=== PATIENT | female | born 1950 | race African-American/Black ===

== ENCOUNTER 2016-08-27 05:19 | Inpatient (IN) ==
[2016-08-24 13:50] LABS: Basophils % 0.4 % (0.0-0.8); Eosinophils # 0.1 10*3/uL (0.0-0.87); Hematocrit 44.1 VOL% (35.7-47.0); Hemoglobin 14.4 GM/DL (12.0-16.0); Immature Granulocytes % 0.3 %; Immature Granulocytes Absolute 0.03 #; Lymphocytes # 4.3 10*3/uL (1.4-4.0); Lymphocytes % 39.3 % (21.3-54.2); Mean Corpuscular HGB Conc 32.7 GM/DL (32-36); Mean Corpuscular Hemoglobin 30 PG (27-34); Mean Corpuscular Volume 92.8 FL (87-102); Mean Platelet Volume 8.7 FL (9.6-12.0); Monocytes # 0.7 10*3/uL (0.11-0.8); Monocytes % 5.9 % (1.7-12.7); Neutrophils # 5.9 10*3/uL (1.4-7.4); Neutrophils % 53.1 % (38.7-73.9); Platelet Count 313 10*3/uL (130-400); Red Blood Count 4.75 10*6/uL (3.8-5.5); Red Cell Distribution Width 15.5 % (9.3-17.3)
--- NOTE | 2016-08-24 13:52 | EKG Report ---
Stationary ECG Study [facility] Test Date: 08/24/2016 1:50:59 PM Pat Name: ANDRE VIEYRA Department: Room: Gender: F Waste Disposal Attendant: KATHIA TA : 1950 Requested by: Darnell Ta Order Number: [id number] Reading MD: HORTENCIA CARMICHAEL Intervals O'Brien Rate: 82 P: 65 AL: 162 QRS: 25 QRSD: 91 T: 49 QT: 393 QTc: 432 Interpretive Statements SINUS RHYTHM Electronically Signed On 08-24-16 16:23:22 ARTIST WOODBLOCK by HORTENCIA CARMICHAEL [email or web address]
[2016-08-24 14:32] LABS: Calcium 9.7 MG/DL (8.5-10.1); Osmolality,Calculated 288.6 MOS/KG (273-304); Potassium 4.1 MMOL/L (3.5-5.1)
--- NOTE | 2016-08-24 16:47 | XRay Report ---
XR chest 2V Indication: Preop respiratory evaluation. Chest 2 views: Comparison 07/06/16. Heart size remains upper limits normal with continued thoracic aortic tortuosity. No discrete infiltrates. Oral spaces appear clear. Impression: No acute cardio pulmonary disease. PROCEDURE INTERPRETED AT [facility] DEPARTMENT OF RADIOLOGY Final Report Signed by: Frederick Shafer M.D.
[2016-08-27] MEDS ORDERED: cefOXitin 1,000 MG in SODIUM CHLORIDE 0.9% 100 ML IV ONE (06:00)
[2016-08-27] MEDS ORDERED: SODIUM CHLORIDE 0.9% 100 ML IV ONE (06:00)
[2016-08-27] MEDS ORDERED: FAMOTIDINE 20 MG TABLET PO ONE (06:14)
[2016-08-27] MEDS ORDERED: DIAZEPAM 5 MG TABLET PO ONE (06:14)
[2016-08-27] MEDS: LACTATED RINGERS 1,000 ML IV SCH ×3 (06:25→10:01)
[2016-08-27] MEDS ORDERED: LIDOCAINE 2% TOP JELLY 20 ML VIAL INTRAURETH ONE (06:29)
--- NOTE | 2016-08-27 07:02 | History and Physical Update ---
History and Physical Update - History and Physical H&P was reviewed, the patient examined and there: are no changes in the patients condition since last H&P was completed.
[2016-08-27] MEDS ORDERED: ONDANSETRON 4 MG/2 ML VIAL ONE ×2 (07:12→12:05)
[2016-08-27] MEDS ORDERED: PROPOFOL 200 MG/20 ML VIAL IV ONE (07:12)
[2016-08-27] MEDS ORDERED: ROCURONIUM 100 MG/10 ML VIAL IV ONE (07:12)
[2016-08-27] MEDS ORDERED: LIDOCAINE 2% 5 ML VIAL ONE (07:12)
[2016-08-27] MEDS ORDERED: GLYCOPYRROLATE 0.4 MG/2 ML VIAL ONE (07:12)
[2016-08-27] MEDS ORDERED: NEOSTIGMINE 10 MG/10 ML VIAL ONE (07:12)
[2016-08-27] MEDS ORDERED: ONDANSETRON 4 MG/2 ML VIAL IV PRN ×2 (07:49→11:53)
[2016-08-27] MEDS ORDERED: METHYLENE BLUE 10 ML VIAL IV ONE (09:17)
--- NOTE | 2016-08-27 10:16 | Operative Note ---
Date of procedure: 08/27/16 Pre-op diagnosis: colovesical fistula Post-op diagnosis: same Procedure: 65-year-old black female with colovesical fistula brought in for partial colectomy and excision of the bladder fistula. Recommended placing a left ureteral stent due to the fistula being close to the ureter and ureteral orifice. Patient brought to the operative suite and given a general endotracheal anesthetic and prepared and draped in usual sterile manner. She's placed in lithotomy position. 20 3 [place] cystourethroscope was passed with video camera. Urethra is normal. The bladder shows the fistula just medial and slightly superior to the left ureteral orifice. A guidewire is passed and a 6 [place] 24 centimeters stent is placed. 18 [place] Sosa was then placed in left gravity drainage. The referred to Dr. Rodriguez dictation for excision of the colon. Implants: 6 [place] 24 centimeters stent Anesthesia: SILVA Surgeon / Physician: Fernando Ledesma Estimated blood loss: none Specimens: none sent Condition: stable Disposition: no change Results - Labs CBC & BMP: 08/24/16 11:34 08/24/16 11:34 Discharge Plan - Discharge Medications No Action Mometasone 50 Mcg Nasal [place] [Nasonex Nasal Faber] 2 spray BOTH NARES BID Clorazepate Dipotassium 3.75 mg PO BID amLODIPine [Norvasc] 5 mg PO DAILY Aspirin [Ecotrin] 81 mg PO DAILY Omeprazole 20 mg PO DAILY Atorvastatin [Lipitor] 40 mg PO DAILY Aloe Vera 400 mg PO DAILY - Follow Up or Referral - Forms/Instructions
--- NOTE | 2016-08-27 10:20 | Operative Note ---
Date of procedure: 08/27/16 Pre-op diagnosis: colovesical fistula Post-op diagnosis: same Procedure: 65-year-old black female with a colovesical fistula. She is brought in for excision by partial colectomy and removal of the fistula from the bladder with a ureteral stent. Previously I cystoscoped him place a stent. Dr. Rodriguez the third has done a partial colectomy. Previous Sosa catheter was removed and the 20 [place]utanese Sosa is inserted. The bladder is filled with about the 200 5300 cc of saline. Superior cystotomy was created with cautery. The bladder was drained. The cystotomy was extended. Retractors were placed in the bladder. The fistula was identified and it is close to the ureter and the stents in good position. The fistula was then encircled with cautery. Metzenbaums were used to dissect the fascial out slightly. 3 of traction sutures placed through the fistula and the fissures pulled up. Using Metzenbaum the fistula was excised. This is very dense fibrotic tissue but after I felt I had enough fistula out it was then amputated. Cautery was used to provide hemostasis. The bladder was then closed with 2 layers with a 2-0 Vicryl on the detrusor and a 4-0 running Vicryl on the mucosa. The bladder is irrigated. The ureter is uninvolved in this and the ureteral orifices intact. The bladder is then closed with a running 4-0 Vicryl on the mucosa and a 2 oh Vicryl on the detrusor. It is really extra peritonealized with a 2-0 Vicryl on the peritoneum. Prior to closure the bladder was irrigated and drained. Sosa was left to gravity drainage. The reader is then referred to Dr. Rodriguez dictation for further procedures. All sponge, needle and instrument counts correct to on the bladder repair with excision of fistula. Anesthesia: GETA Surgeon / Physician: Fernando Ledesma Estimated blood loss: other (10cc) Specimens: other (bladder fistula) Condition: stable Disposition: no change Results - Labs CBC & BMP: 08/24/16 11:34 08/24/16 11:34 Discharge Plan - Discharge Medications No Action Mometasone 50 Mcg Nasal [place] [Nasonex Nasal [place]] 2 spray BOTH NARES BID Clorazepate Dipotassium 3.75 mg PO BID amLODIPine [Norvasc] 5 mg PO DAILY Aspirin [Ecotrin] 81 mg PO DAILY Omeprazole 20 mg PO DAILY Atorvastatin [Lipitor] 40 mg PO DAILY Aloe Vera 400 mg PO DAILY - Follow Up or Referral - Forms/Instructions
[2016-08-27] MEDS ORDERED: TISSUE ADHESIVE 1 EACH APPLICATOR TOP ONE (11:17)
--- NOTE | 2016-08-27 11:24 | Operative Note ---
Date of procedure: 08/27/16 Procedure: During the course a low anterior resection Dr. Rodriguez as requested my assistance with completing the anastomosis. As I joined the case that he had performed a resection of the sigmoid colon and proximal rectum and was prepared for an end-to-end anastomosis. I advanced the EEA instrument and spike through the rectum place and will within the proximal colon and then this was fired appropriately. At completion I performed proctoscopy and noted the anastomosis but there was a good bit of a leak as we examine the anastomosis we found that the proximal portion had not completely closed with the EEA device. Dr. Rodriguez and I reevaluated the situation felt that resection and regular doing the anastomosis was appropriate and this was carried out by refiring a contoured stapling estimate across the rectum just distal to the previous anastomosis bringing that anastomosis re-performing the pursestring and placing amble the second anastomosis with a 28 mm EEA was carried out then performed proctoscopy again noting the anastomosis and no sign of air leak and a well intact anastomosis with no active bleeding. This point I left case and Dr. Rodriguez completed the majority of this procedure is discussed by separately and Dr. Rodriguez's operative note Surgeon / Physician: Jaron Pacheco Results - Labs CBC & BMP: 08/24/16 11:34 08/24/16 11:34 Discharge Plan - Discharge Medications No Action Mometasone 50 Mcg Nasal [place] [Nasonex Nasal [place]] 2 spray BOTH NARES BID Clorazepate Dipotassium 3.75 mg PO BID amLODIPine [Norvasc] 5 mg PO DAILY Aspirin [Ecotrin] 81 mg PO DAILY Omeprazole 20 mg PO DAILY Atorvastatin [Lipitor] 40 mg PO DAILY Aloe Vera 400 mg PO DAILY - Follow Up or Referral - Forms/Instructions
--- NOTE | 2016-08-27 11:52 | Operative Note ---
Date of procedure: 08/27/16 Pre-op diagnosis: colovesical fistula Post-op diagnosis: same Procedure: Sigmoid colectomy with stapled EEA anastomosis #2 complete mobilization of splenic flexure #3 extensive lysis of pelvic adhesions to gain access to the bowel. Findings and technique: After informed consent was obtained the patient was brought the operating room and placed in supine position. After successful induction with general anesthesia cystoscopy was carried out by Dr. Ledesma and a left ureteral stent placed by him. Please see his separate operative dictation. Following this the abdomen was prepped and draped in usual sterile fashion and opened through the lower midline incision. The pelvis was full of postoperative adhesions from previous surgery and this required extensive dissection to free up small bowel to get it out of the pelvis so we could expose the colon and the bladder. 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 No evidence of malignancy was noted. I then mobilized the sigmoid colon which was folded back on itself a couple of times and stuck to the posterior aspect of the bladder. Prior to trying to free up the sigmoid I dissected laterally and identified the ureter and kept my dissection medial to the ureter. I tediously mobilized it free from the bladder and dissected down to the proximal rectum. I mobilized the descending colon and splenic flexure as well so that I could resect most of the sigmoid colon which had diverticular disease. This was resected dividing the mesocolon between clamps and ties and transecting the rectosigmoid with a curved stapling device. The specimen was removed and inspected by pathology and no malignancy noted. The point of the fistula was noted as well. Following this the bladder repair was carried out by Dr. Ledesma. Please see his separate operative dictation. Following Dr. Ledesma repair of the anastomosis was performed with a 28 mm EEA stapling device and the first firing the stapler had a leak posteriorly through what I felt was probably a weak area possibly where there had been a diverticulum. I resected the staple line and repeated it with the assistance of Dr. Whaely and we got a good clean staple line under no tension which appeared to be well-perfused. This was leak tested under water and also proctoscope under water and no leakage of air noted. This suture line was reinforced with several interrupted silk sutures and coated with Tisseel tissue sealant. I then placed some pericolic fat and omentum over the anterior staple line and isolated away from the bladder area a 10 mm MADDI drain was placed in the pelvis and brought out through separate stab incision laterally. Midline fascia was closed running #1 PDS suture and the skin incision closed with skin clips. She appeared to tolerate the procedure well. This was a much more difficult procedure than usual because of her obese body habitus with truncal obesity concentrated in her lower abdomen and also her extensive previous adhesions. These factors add greatly to the difficulty and complexity of the case essentially doubling usual expected operative time. She appeared to tolerate the procedure well however and had no apparent complications. Anesthesia: ARPANA Surgeon / Physician: Darnell Rodriguez III. Estimated blood loss: other (100ml) Specimens: other (sigmoid colectomy) Condition: stable Disposition: PACU Results - Labs CBC & BMP: 08/24/16 11:34 08/24/16 11:34 Discharge Plan - Discharge Medications No Action Mometasone 50 Mcg Nasal [place] [Nasonex Nasal [place]] 2 spray BOTH NARES BID Clorazepate Dipotassium 3.75 mg PO BID amLODIPine [Norvasc] 5 mg PO DAILY Aspirin [Ecotrin] 81 mg PO DAILY Omeprazole 20 mg PO DAILY Atorvastatin [Lipitor] 40 mg PO DAILY Aloe Vera 400 mg PO DAILY - Follow Up or Referral - Forms/Instructions
[2016-08-27] MEDS ORDERED: LACTATED RINGERS 2,000 ML IV ONE (11:59)
[2016-08-27] MEDS ORDERED: MIDAZOLAM 2 MG/2 ML VIAL ONE (11:59)
[2016-08-27] MEDS ORDERED: SEVOFLURANE 1 UNIT/15 MINUTE INH ONE (11:59)
[2016-08-27] MEDS: HYDROmorphone 2 MG/1 ML VIAL IV PRN ×4 (12:05→12:20)
[2016-08-27] MEDS ORDERED: HYDROmorphone 2 MG/1 ML VIAL ONE (12:05)
[2016-08-27] MEDS: MORPHINE PCA 30 MG/30 ML SYRINGE IV SCH (12:15)
[2016-08-27 12:58] LABS: Hematocrit 43.5 VOL% (35.7-47.0); Hemoglobin 13.8 GM/DL (12.0-16.0)
--- NOTE | 2016-08-27 17:25 | Urology Progress Note ---
Urology - PN: Subj Interval history: Postoperative check. Patient is sleepy. Her urine blood tinged but draining well. MADDI has 70 cc since surgery. I explained to her that I will be out of town until Wednesday. Dr. Calloway will see her tomorrow and then the on-call physician we'll see her through this weekend. She will keep the Sosa and go home with it. She is on Vesicare and will maintain that. Exam - Constitutional Vitals: Period Temp Pulse Resp BP Sys/Aviles Pulse Ox Last 24 Hr 97.2 F-98.7 F 62-79 16-20 102-182/64-100 93-99 Results - Labs CBC & BMP: 08/27/16 12:50 08/24/16 11:34
[2016-08-27 20:09] LABS: Hemoglobin 13.2 GM/DL (12.0-16.0)
[2016-08-28] MEDS: ENOXAPARIN 40 MG/0.4 ML SYRINGE SUBCUT SCH (05:14)
[2016-08-28 06:33] LABS: Basophils % 0.2 % (0.0-0.8); Eosinophils % 0.2 % (0.00-10.9); Hematocrit 40.1 VOL% (35.7-47.0); Immature Granulocytes % 0.4 %; Immature Granulocytes Absolute 0.07 #; Lymphocytes # 1.4 10*3/uL (1.4-4.0); Lymphocytes % 8.3 % (21.3-54.2); Mean Corpuscular HGB Conc 32.4 GM/DL (32-36); Mean Corpuscular Hemoglobin 30 PG (27-34); Mean Corpuscular Volume 92.2 FL (87-102); Mean Platelet Volume 9.7 FL (9.6-12.0); Monocytes # 0.4 10*3/uL (0.11-0.8); Monocytes % 2.5 % (1.7-12.7); Neutrophils # 14.6 10*3/uL (1.4-7.4); Neutrophils % 88.4 % (38.7-73.9); Platelet Count 272 10*3/uL (130-400); Red Blood Count 4.35 10*6/uL (3.8-5.5); Red Cell Distribution Width 15.8 % (9.3-17.3); White Blood Count 16.6 10*3/uL (4.5-13.71)
[2016-08-28 07:04] LABS: Calcium 8.5 MG/DL (8.5-10.1); Osmolality,Calculated 289.6 MOS/KG (273-304); Potassium 4.3 MMOL/L (3.5-5.1)
--- NOTE | 2016-08-28 07:06 | Anesthesia ---
Anesthesia Post OP - Post Ansesthetic Evaluation Patient seen in post op: Yes Resp: within normal limits CV: within normal limits Mental: within normal limits Temp: within normal limits [id number]: within normal limits Nausea and Vomiting: within normal limits Pain: within normal limits
--- NOTE | 2016-08-28 08:04 | Urology Progress Note ---
Urology - PN: Subj Interval history: The patient has mild hematuria. Continue with Sosa catheter drainage Exam - Constitutional Vitals: Period Temp Pulse Resp BP Sys/Aviles Pulse Ox Last 24 Hr 98.1 F-100.5 F 62-104 14-20 102-182/64-100 93-100 Results - Labs CBC & BMP: 08/28/16 05:49 08/28/16 05:49
[2016-08-28] MEDS: SOLIFENACIN 5 MG TABLET PO SCH (08:50)
[2016-08-28] MEDS: PANTOPRAZOLE 40 MG VIAL IV SCH (08:50)
[2016-08-28] MEDS: ACETAMINOPHEN 325 MG TABLET PO PRN ×3 (11:31→23:57)
--- NOTE | 2016-08-28 11:50 | Event Note ---
She is alert but is sedated some problems with INCOMING FREIGHT CLERK. She denies abdominal pain. She has not had nausea or vomiting. She has had adequate urine output has not been on significant IV fluid which appears to be a mistake from the postop orders. I have added IV fluids. She is more tachycardic this morning but it appears that she has fever and was probably from the fever. Her lab work looks okay. I'm going to get her up more out of bed. Her abdomen is nontender and nondistended and there is only a small amount of serosanguineous drainage in her MADDI drain. We'll keep her Sosa catheter.
--- NOTE | 2016-08-28 12:45 | Pathology Report from [facility] ---
ACCESSION # : [id number] PATIENT NAME : Andre iVeyra ORDERING DR : AIDE TA III, MD CLINICAL HX: Colovesicle fistula POST-OP DX: Same SPECIMEN INFO: #1 Sigmoid colon #2 Colovesicle fistula #3 Donut GROSS DESCRIPTION: #1 Received fresh labeled with the patient's name "ANDRE VIEYRA and #1" and consists of a fragment of sigmoid colon measuring 18.5 x 2.0 cm. There is a suture present which designates the distal margin. The serosa is hyperemic. There are numerous non bleeding diverticula present that contains hard fecal material. There is a polypoid lesion present which is approximately 11.0 cm from the distal margin with two additional polypoid areas measuring 0.6 cm. No tumors are grossly seen. Sections submitted: 1A proximal margin, 1B distal margin, 1C thru 1E medical representative diverticuai and 1F polypoid area.#2 Received in formalin labeled with the patient's name "ANDRE VIEYRA and #2" and consists of a slightly firm pink-rizo tissue fragments with a suture present measuring 2.5 x 1.0 x 0.8 cm. Sectioned and submitted in cassette #2.#3 Received in formalin labeled with the patient's name "ANDRE VIEYRA and #3" and consists of fragments of hyperemic rizo mucosal tissue collectively measuring 4.5 x 5.2 cm. Lacing Cutter sections submitted in cassette #3. DIAGNOSIS FOR ANDRE VIEYRA: #1 SIGMOID COLECTOMY: Extensive diverticulitis. Hyperplastic polyps. Viable tissue present in proximal and distal specimen margins.#2 COLOVESICLE FISTULA: Acute and chronic inflammation, granulation, fibrosis.#3 DONUT: Viable colonic tissue. SERVICE DATE: 08/27/2016 REPORT DATE: 08/28/2016 PATHOLOGIST: Linda Garner
[2016-08-28] MEDS: LACTATED RINGERS 1,000 ML IV SCH ×3 (14:10→22:10)
[2016-08-28] MEDS: MORPHINE PCA 30 MG/30 ML SYRINGE IV SCH (18:45)
[2016-08-29] MEDS: LACTATED RINGERS 1,000 ML IV SCH ×4 (02:53→17:52)
[2016-08-29 03:38] LABS: Basophils % 0.2 % (0.0-0.8); Hematocrit 38.5 VOL% (35.7-47.0); Hemoglobin 12.6 GM/DL (12.0-16.0); Immature Granulocytes % 1.1 %; Immature Granulocytes Absolute 0.24 #; Lymphocytes # 1.3 10*3/uL (1.4-4.0); Lymphocytes % 5.6 % (21.3-54.2); Mean Corpuscular HGB Conc 32.7 GM/DL (32-36); Mean Corpuscular Hemoglobin 30 PG (27-34); Mean Corpuscular Volume 92.5 FL (87-102); Monocytes % 4.3 % (1.7-12.7); NRBC # 0.07 10*3/uL; Neutrophils # 19.8 10*3/uL (1.4-7.4); Neutrophils % 88.8 % (38.7-73.9); Platelet Count 234 10*3/uL (130-400); Red Blood Count 4.16 10*6/uL (3.8-5.5); Red Cell Distribution Width 15.8 % (9.3-17.3); White Blood Count 22.3 10*3/uL (4.5-13.71)
[2016-08-29 04:07] LABS: Osmolality,Calculated 284.8 MOS/KG (273-304); Potassium 4.7 MMOL/L (3.5-5.1)
[2016-08-29] MEDS: ENOXAPARIN 40 MG/0.4 ML SYRINGE SUBCUT SCH (05:45)
[2016-08-29 06:25] LABS: Platelet Estimate Normal
--- NOTE | 2016-08-29 07:33 | Urology Progress Note ---
Urology - PN: Subj Interval history: The patient still has hematuria but this is stable or improved and she is not complaining of any bladder spasms Exam - Constitutional Vitals: Period Temp Pulse Resp BP Sys/Aviles Pulse Ox Last 24 Hr 99.1 F-102.9 F 111-125 16-20 147-167/82-103 93-97 Results - Labs CBC & BMP: 08/29/16 02:59 08/29/16 03:00
--- NOTE | 2016-08-29 09:01 | XRay Report ---
XR abdomen 2V Indication: Abdominal pain. Abdomen 2 views: Left ureter stent is present. Right pelvic MADDI drain is present. There are some scattered air-fluid levels but no small bowel dilatation. Modest gaseous distention of bowel noted on the supine image. No free air seen. Impression: Mild ileus. No obstruction. No evidence pneumoperitoneum. PROCEDURE INTERPRETED AT [facility] DEPARTMENT OF RADIOLOGY Final Report Signed by: Frederick Shafer M.D.
--- NOTE | 2016-08-29 09:02 | XRay Report ---
XR chest 2V Indication: Pneumonia. Chest 2 views: Comparison 08/24/16. Curvilinear opacity at the right lung base, probably right lower lobe, is present but has the appearance of atelectasis. There are some mild atelectasis of the left lung base as well. Mid and upper lungs are clear. Heart size is normal. Aorta is tortuous. Impression: Bibasilar atelectasis. No definite pneumonia seen. Consider short-term followup. PROCEDURE INTERPRETED AT [facility] DEPARTMENT OF RADIOLOGY Final Report Signed by: Frederick Shafer M.D.
--- NOTE | 2016-08-29 09:33 | Event Note ---
She looks and feels much better. She has had fever the first 48 hours but this seems to have subsided this morning. She still tachycardic for unclear reasons. She is in a chair and feels well. Her abdomen looks okay. She is not short of breath. Her chest x-ray shows atelectasis. Her urine output is good and there is serosanguineous drainage in her MADDI drain and not very much. Abdominal x-ray looks pretty unremarkable. She is not having lower extremity edema but we will check an ultrasound of her lower extremities to make sure that there is not DVT. It is encouraging to see her up more and looking better. The etiology of her tachycardia and fever is unclear but may be related to atelectasis.
[2016-08-29] MEDS: SOLIFENACIN 5 MG TABLET PO SCH (09:36)
[2016-08-29] MEDS: PANTOPRAZOLE 40 MG VIAL IV SCH (09:36)
--- NOTE | 2016-08-29 11:02 | Ultrasound Report ---
US venous doppler LE BI Indication: Tachycardia postop. Shortness of breath. BILATERAL LOWER EXTREMITY VENOUS ULTRASOUND Comparison: None Findings: Graded grayscale compression, color Doppler and pulsed Doppler ultrasound evaluation of the venous structures performed. Normal compressibility, augmentation and color saturation is present within bilateral common femoral, superficial femoral, popliteal and proximal greater saphenous veins. Impression: No evidence of DVT either lower extremity. PROCEDURE INTERPRETED AT [facility] DEPARTMENT OF RADIOLOGY Final Report Signed by: Frederick Shafer M.D.
[2016-08-29] MEDS: MORPHINE PCA 30 MG/30 ML SYRINGE IV SCH (12:30)
[2016-08-30] MEDS: LACTATED RINGERS 1,000 ML IV SCH ×3 (00:04→16:27)
[2016-08-30] MEDS: ENOXAPARIN 40 MG/0.4 ML SYRINGE SUBCUT SCH (06:33)
[2016-08-30] MEDS: SOLIFENACIN 5 MG TABLET PO SCH (09:56)
[2016-08-30] MEDS: PANTOPRAZOLE 40 MG VIAL IV SCH (09:56)
--- NOTE | 2016-08-30 13:45 | Event Note ---
General Surgery Progress Note Chief complaint This patient is a 65-year-old woman who is admitted following open sigmoid colectomy with repair of colovesicular fistula by Dr. Michael SALAZAR and Dr. Fernando Ledesma in coordination. Interval history The patient continues to have low-grade fevers and tachycardia. She's having some stable but fairly severe abdominal pain. Her urine output is still bloody and her Sosa is still in place. Her white blood cell count yesterday had gone up to 22,000 and she had a workup done by Dr. Rodriguez including chest x-ray, abdominal x-ray, and duplex lower extremities which were all negative for DVT and x-rays just demonstrated what appeared to look like an ileus. She had some significant drainage from incision overnight. Physical exam The patient had a low-grade temperature on 100.3, she is tachycardic with sinus tachycardia and her blood pressure is normal her respirations are normal Chest is clear Heart is regular and tachycardic Abdomen is tender diffusely with no peritonitis. The midline incision has some foul-smelling drainage coming from it and had saturated the dressing. The dressing was removed and there was some clot near the incision but no expressible drainage or purulence. There is no obvious erythema of the incision. Bowel sounds are hypoactive and the abdomen is distended Extremities without edema Labs None new Assessment and plan We will further interrogate the midline incision once the patient is lying back in bed to see if this shows a source of her fever and tachycardia Continue clear liquids for now Continue current pain regimen
[2016-08-30] MEDS: MORPHINE PCA 30 MG/30 ML SYRINGE IV SCH (14:57)
[2016-08-30 16:02] LABS: Basophils % 0.1 % (0.0-0.8); Eosinophils # 0.2 10*3/uL (0.0-0.87); Hematocrit 33.2 VOL% (35.7-47.0); Immature Granulocytes % 1.9 %; Immature Granulocytes Absolute 0.33 #; Lymphocytes # 1.8 10*3/uL (1.4-4.0); Lymphocytes % 10.1 % (21.3-54.2); Mean Corpuscular HGB Conc 33.1 GM/DL (32-36); Mean Corpuscular Hemoglobin 31 PG (27-34); Mean Corpuscular Volume 93.3 FL (87-102); Mean Platelet Volume 9.6 FL (9.6-12.0); Neutrophils # 14.1 10*3/uL (1.4-7.4); Neutrophils % 80.9 % (38.7-73.9); Platelet Count 217 10*3/uL (130-400); Red Blood Count 3.56 10*6/uL (3.8-5.5); Red Cell Distribution Width 15.3 % (9.3-17.3); White Blood Count 17.4 10*3/uL (4.5-13.71)
[2016-08-30 16:30] LABS: Calcium 8.6 MG/DL (8.5-10.1); Osmolality,Calculated 276.4 MOS/KG (273-304); Potassium 3.3 MMOL/L (3.5-5.1)
--- NOTE | 2016-08-30 17:32 | Urology Progress Note ---
Urology - PN: Subj Interval history: The patient's MADDI drainage is down. She still has an elevated white count. She still has hematuria this is clearing very slowly Exam - Constitutional Vitals: Period Temp Pulse Resp BP Sys/Aviles Pulse Ox Last 24 Hr 98.5 F-100.3 F 104-118 16-20 119-162/65-85 95-100 Results - Labs CBC & BMP: 08/30/16 15:36 08/30/16 15:36
[2016-08-30] MEDS: POTASSIUM CHLORIDE RIDER 10 MEQ in PREMIX 1 EACH IV SCH ×2 (20:30→22:52)
[2016-08-31] MEDS: LACTATED RINGERS 1,000 ML IV SCH ×4 (00:20→17:57)
[2016-08-31] MEDS: POTASSIUM CHLORIDE RIDER 10 MEQ in PREMIX 1 EACH IV SCH ×4 (01:27→04:30)
[2016-08-31] MEDS ORDERED: POTASSIUM CHLORIDE RIDER 10 MEQ in PREMIX 1 EACH IV ONE (02:30)
[2016-08-31 06:07] LABS: Basophils % 0.1 % (0.0-0.8); Eosinophils # 0.3 10*3/uL (0.0-0.87); Eosinophils % 1.6 % (0.00-10.9); Hematocrit 34.3 VOL% (35.7-47.0); Hemoglobin 11.1 GM/DL (12.0-16.0); Immature Granulocytes % 0.5 %; Immature Granulocytes Absolute 0.08 #; Lymphocytes # 1.5 10*3/uL (1.4-4.0); Lymphocytes % 9.3 % (21.3-54.2); Mean Corpuscular HGB Conc 32.4 GM/DL (32-36); Mean Corpuscular Hemoglobin 30 PG (27-34); Mean Platelet Volume 10.5 FL (9.6-12.0); Monocytes # 1.2 10*3/uL (0.11-0.8); Monocytes % 7.3 % (1.7-12.7); Neutrophils % 81.2 % (38.7-73.9); Platelet Count 229 10*3/uL (130-400); Red Blood Count 3.73 10*6/uL (3.8-5.5); Red Cell Distribution Width 15.7 % (9.3-17.3)
[2016-08-31 06:42] LABS: Calcium 8.5 MG/DL (8.5-10.1); Osmolality,Calculated 279.1 MOS/KG (273-304); Potassium 4.2 MMOL/L (3.5-5.1)
[2016-08-31] MEDS: ENOXAPARIN 40 MG/0.4 ML SYRINGE SUBCUT SCH (07:45)
--- NOTE | 2016-08-31 08:09 | Event Note ---
She looks and feels much better. I tried to dictate earlier but could not get the tract to work. She has no further fever since yesterday and her tachycardia has resolved as her fever has resolved. She does not really have complaints of abdominal pain and is hungry. She is requesting a more substantial diet. She is not had a bowel movement. Her wound drainage does not appear to be infected. I do not see any evidence of cellulitis. Dr. Li opened her wound yesterday to see if there was any infection with her because of her persistent white count and fever. This does not appear to be infectious source. She is been most of her time up out of bed in the chair and we will continue this and try to get her ambulating more. There is no sign of urine or infection in her MADDI drain. Hopefully she will be ready for discharge in the next couple of days. Because of her persistent white count and fever she was started on IV antibiotics though we do not have a clear infectious source. Her urine would certainly be a possibility. We have kept her Sosa for obvious reasons because of her recent bladder surgery and this is why it was not discontinue as usual on postoperative day #2.
[2016-08-31] MEDS: PANTOPRAZOLE 40 MG VIAL IV SCH (09:03)
[2016-08-31] MEDS: SOLIFENACIN 5 MG TABLET PO SCH (09:03)
--- NOTE | 2016-08-31 10:04 | Urology Progress Note ---
Urology - PN: Subj Interval history: Patient slowly improving. Her urine still was blood-tinged which is not uncommon. Her MADDI drainage is down to almost nothing. As far as I'm concerned, this can be removed. She needs to ambulate. Exam - Constitutional Vitals: Period Temp Pulse Resp BP Sys/Aviles Pulse Ox Last 24 Hr 98.2 F-100.3 F 94-115 18-20 119-139/69-88 95-99 Results - Labs CBC & BMP: 08/31/16 05:02 08/31/16 05:02
[2016-08-31] MEDS: MORPHINE PCA 30 MG/30 ML SYRINGE IV SCH (11:23)
[2016-09-01] MEDS: LACTATED RINGERS 1,000 ML IV SCH ×6 (04:50→22:50)
[2016-09-01] MEDS: ENOXAPARIN 40 MG/0.4 ML SYRINGE SUBCUT SCH (05:56)
--- NOTE | 2016-09-01 07:40 | Event Note ---
feels better. AFVSS. no tachycardia. no bm yet. decrease ivf. re check labs. urine clear. prince serosanguinous
[2016-09-01] MEDS: PANTOPRAZOLE 40 MG VIAL IV SCH (09:52)
[2016-09-01] MEDS: SOLIFENACIN 5 MG TABLET PO SCH (09:52)
--- NOTE | 2016-09-01 11:51 | Urology Progress Note ---
Urology - PN: Subj Interval history: Patient continues to improve. Urine is clear. Still has her MADDI. She has a stent which will be removed in 6 weeks. I will sign off. I will see her in the office on 09/14/16. We will remove her catheter. We will remove the stent and proximally 6 weeks. I will write an order for the Vesicare. Exam - Constitutional Vitals: Period Temp Pulse Resp BP Sys/Aviles Pulse Ox Last 24 Hr 98.5 F-98.8 F 88-105 17-20 124-145/69-89 92-98 Results - Labs CBC & BMP: 08/31/16 05:02 08/31/16 05:02
[2016-09-01] MEDS: MORPHINE PCA 30 MG/30 ML SYRINGE IV SCH (14:24)
[2016-09-01] MEDS: MORPHINE 2 MG/1 ML SYRINGE IV PRN (20:06)
[2016-09-02 04:37] LABS: Basophils % 0.2 % (0.0-0.8); Eosinophils # 0.2 10*3/uL (0.0-0.87); Eosinophils % 1.8 % (0.00-10.9); Hematocrit 32.4 VOL% (35.7-47.0); Hemoglobin 10.6 GM/DL (12.0-16.0); Immature Granulocytes % 2.6 %; Immature Granulocytes Absolute 0.32 #; Lymphocytes # 1.3 10*3/uL (1.4-4.0); Lymphocytes % 10.4 % (21.3-54.2); Mean Corpuscular HGB Conc 32.7 GM/DL (32-36); Mean Corpuscular Hemoglobin 30 PG (27-34); Mean Corpuscular Volume 92.8 FL (87-102); Mean Platelet Volume 9.8 FL (9.6-12.0); Monocytes # 1.1 10*3/uL (0.11-0.8); Monocytes % 9.1 % (1.7-12.7); NRBC # 0.04 10*3/uL; Neutrophils # 9.2 10*3/uL (1.4-7.4); Neutrophils % 75.9 % (38.7-73.9); Platelet Count 287 T/CUMM (130-400); Red Blood Count 3.49 MC/CUMM (3.8-5.5); Red Cell Distribution Width 15.6 % (9.3-17.3); White Blood Count 12.1 T/CUMM (4-12)
[2016-09-02 05:08] LABS: Calcium 8.6 MG/DL (8.5-10.1); Osmolality,Calculated 283.8 MOS/KG (273-304); Potassium 3.8 MMOL/L (3.5-5.1)
[2016-09-02] MEDS: ENOXAPARIN 40 MG/0.4 ML SYRINGE SUBCUT SCH (05:43)
--- NOTE | 2016-09-02 07:38 | Event Note ---
She feels better. She is afebrile with stable vital signs. She is tolerating a by mouth diet now and getting up more. Her MADDI drainage is serosanguineous and her abdomen is nontender. She her wound looks okay but is having some drainage worsened clips were removed. This does not look like bowel contents. I'm hoping that she will be ready for discharge in the next day or so.
[2016-09-02] MEDS: MORPHINE 2 MG/1 ML SYRINGE IV PRN ×3 (09:33→23:00)
[2016-09-02] MEDS: SOLIFENACIN 5 MG TABLET PO SCH (09:36)
[2016-09-02] MEDS: PANTOPRAZOLE 40 MG VIAL IV SCH (09:37)
[2016-09-02] MEDS: LACTATED RINGERS 1,000 ML IV SCH (09:41)
[2016-09-03] MEDS: LACTATED RINGERS 1,000 ML IV SCH ×2 (01:00→22:21)
[2016-09-03] MEDS: MORPHINE 2 MG/1 ML SYRINGE IV PRN ×2 (04:01→08:47)
[2016-09-03] MEDS: ENOXAPARIN 40 MG/0.4 ML SYRINGE SUBCUT SCH (05:49)
[2016-09-03] MEDS: SOLIFENACIN 5 MG TABLET PO SCH (08:49)
[2016-09-03] MEDS: PANTOPRAZOLE 40 MG VIAL IV SCH (08:52)
--- NOTE | 2016-09-03 16:40 | Event Note ---
I saw the patient this morning and she feels better since we opened her wound yesterday. She is had low-grade temperature is had less drainage from her wound. Cultures preliminarily growing gram-negative rods and we do have her on Mefoxin we will continue with dressing changes for now appears to be wound in the skin and subcutaneous layer. She had a CT scan several days ago which did not show evidence of intra-abdominal infection.
[2016-09-04] MEDS: ENOXAPARIN 40 MG/0.4 ML SYRINGE SUBCUT SCH (05:24)
--- NOTE | 2016-09-04 07:26 | Event Note ---
She feels better. She is not had any fever in the last 24 hours. Her wound looks better. I unpacked her wounds morning and the infection still appears limited to the skin and subcutaneous tissue. The fascia looks good and is intact. I do not think that there is some associated leak each space infection or fistula. The drainage from her wound does not appear to represent enteric contents noted is growing gram-negative rods. Her MADDI drainage does not appear consistent with an anastomotic leak. She did have a bowel movement last night. She pulled out her Sosa accidentally and this had to be replaced. I think we need to keep her in the hospital another day or 2 for IV antibiotics and wound care.
[2016-09-04] MEDS: SOLIFENACIN 5 MG TABLET PO SCH (09:52)
[2016-09-04] MEDS: PANTOPRAZOLE 40 MG VIAL IV SCH (09:52)
[2016-09-04] MEDS: LACTATED RINGERS 1,000 ML IV SCH ×2 (15:57→19:52)
[2016-09-05] MEDS: LACTATED RINGERS 1,000 ML IV SCH ×2 (05:29→19:12)
[2016-09-05] MEDS: PANTOPRAZOLE 40 MG VIAL IV SCH (09:31)
[2016-09-05] MEDS: SOLIFENACIN 5 MG TABLET PO SCH (09:39)
--- NOTE | 2016-09-05 09:41 | Event Note ---
She feels much better. She has remained afebrile the last 24 hours and has stable vital signs. She has much less abdominal pain. She has serosanguineous MADDI drainage. Her wound looks much better. She has minimal drainage now and no purulence. The wound appears that it is starting to heal. Her cultures grew Pseudomonas I'm going to change her from Mefoxin to Levaquin. This is something that we will be able to transfer over to by mouth readily at the time of discharge. We are going to have to work on a swing bed for her as she will not be able to care for herself at home.
[2016-09-05] MEDS: ENOXAPARIN 40 MG/0.4 ML SYRINGE SUBCUT SCH (09:47)
[2016-09-05] MEDS: LEVOFLOXACIN INJ 500 MG in PREMIX 1 EACH IV SCH (10:59)
--- NOTE | 2016-09-06 09:20 | Event Note ---
She feels better. She is tolerating some by mouth. She has minimal MADDI output. Her abdomen looks better and her wound is okay. We will continue IV antibiotics today. We will look it swing bed placement tomorrow.
[2016-09-06] MEDS: LEVOFLOXACIN INJ 500 MG in PREMIX 1 EACH IV SCH (09:25)
[2016-09-06] MEDS: ENOXAPARIN 40 MG/0.4 ML SYRINGE SUBCUT SCH (09:26)
[2016-09-06] MEDS: PANTOPRAZOLE 40 MG VIAL IV SCH (09:26)
[2016-09-06] MEDS: SOLIFENACIN 5 MG TABLET PO SCH (09:27)
[2016-09-06] MEDS: LACTATED RINGERS 1,000 ML IV SCH ×2 (09:27→23:11)
[2016-09-06] MEDS: MORPHINE 2 MG/1 ML SYRINGE IV PRN (09:32)
[2016-09-07] MEDS: MORPHINE 2 MG/1 ML SYRINGE IV PRN (04:15)
[2016-09-07] MEDS: SOLIFENACIN 5 MG TABLET PO SCH (08:40)
[2016-09-07] MEDS: ENOXAPARIN 40 MG/0.4 ML SYRINGE SUBCUT SCH (08:41)
[2016-09-07] MEDS: PANTOPRAZOLE 40 MG VIAL IV SCH (08:56)
[2016-09-07 10:11] LABS: Basophils % 0.1 % (0.0-0.8); Eosinophils # 0.2 10*3/uL (0.0-0.87); Eosinophils % 1.3 % (0.00-10.9); Hemoglobin 10.6 GM/DL (12.0-16.0); Immature Granulocytes % 1.3 %; Lymphocytes # 2.3 10*3/uL (1.4-4.0); Lymphocytes % 14.9 % (21.3-54.2); Mean Corpuscular HGB Conc 32.1 GM/DL (32-36); Mean Corpuscular Hemoglobin 30 PG (27-34); Mean Platelet Volume 9.2 FL (9.6-12.0); Monocytes # 0.7 10*3/uL (0.11-0.8); Monocytes % 4.5 % (1.7-12.7); NRBC # 0.04 10*3/uL; Neutrophils # 11.8 10*3/uL (1.4-7.4); Neutrophils % 77.9 % (38.7-73.9); Platelet Count 629 T/CUMM (130-400); Red Blood Count 3.51 MC/CUMM (3.8-5.5); Red Cell Distribution Width 15.7 % (9.3-17.3); White Blood Count 15.2 T/CUMM (4-12)
[2016-09-07] MEDS: LEVOFLOXACIN INJ 500 MG in PREMIX 1 EACH IV SCH (10:11)
[2016-09-07 10:44] LABS: Osmolality,Calculated 286.6 MOS/KG (273-304)
--- NOTE | 2016-09-07 12:40 | Event Note ---
She feels much better. She is afebrile and her abdomen is much better. She is tolerating a diet. Her wound is cleaning up and she is about a point where she could go to a swing bed. director of creative services is working on placement.
[2016-09-07] MEDS: LACTATED RINGERS 1,000 ML IV SCH ×2 (18:48→23:05)
[2016-09-08] MEDS: LACTATED RINGERS 1,000 ML IV SCH ×3 (07:08→21:50)
--- NOTE | 2016-09-08 07:25 | Event Note ---
She denies abdominal pain. She complains of bilateral lower extremity edema and pain in her thighs. We will check an ultrasound. Her thighs are nontender and it is difficult to assess whether she truly has edema or signs of deep vein thrombosis because of her obesity. She is afebrile with stable vital signs. Her abdomen and her abdominal wound looks good. There are no signs of wound infection at this point. I will recheck her lab work.
[2016-09-08 07:57] LABS: Basophils % 0.2 % (0.0-0.8); Eosinophils # 0.2 10*3/uL (0.0-0.87); Eosinophils % 1.8 % (0.00-10.9); Hematocrit 29.5 VOL% (35.7-47.0); Hemoglobin 9.4 GM/DL (12.0-16.0); Immature Granulocytes Absolute 0.13 #; Lymphocytes # 1.8 10*3/uL (1.4-4.0); Lymphocytes % 14.7 % (21.3-54.2); Mean Corpuscular HGB Conc 31.9 GM/DL (32-36); Mean Corpuscular Hemoglobin 30 PG (27-34); Mean Corpuscular Volume 93.9 FL (87-102); Monocytes # 0.7 10*3/uL (0.11-0.8); Monocytes % 5.8 % (1.7-12.7); NRBC # 0.02 10*3/uL; Neutrophils # 9.6 10*3/uL (1.4-7.4); Neutrophils % 76.5 % (38.7-73.9); Platelet Count 592 T/CUMM (130-400); Red Blood Count 3.14 MC/CUMM (3.8-5.5); Red Cell Distribution Width 15.7 % (9.3-17.3); White Blood Count 12.5 T/CUMM (4-12)
[2016-09-08 08:17] LABS: Calcium 8.6 MG/DL (8.5-10.1); Magnesium 1.9 MG/DL (1.8-2.4); Osmolality,Calculated 287.6 MOS/KG (273-304); Potassium 4.1 MMOL/L (3.5-5.1)
--- NOTE | 2016-09-08 09:27 | Ultrasound Report ---
Venous Doppler ultrasound bilateral lower extremities Indication: Swelling Comparison: None available Findings: No evidence of echogenic, noncompressible thrombus seen in the visualized veins of the extremities. Color Doppler venous waveform pattern is within normal limits. Impression: No evidence of deep venous thrombosis. Ultrasound images stored and captured. PROCEDURE INTERPRETED AT [facility] DEPARTMENT OF RADIOLOGY Final Report Signed by: Dr. Zach Martinez
[2016-09-08] MEDS: ENOXAPARIN 40 MG/0.4 ML SYRINGE SUBCUT SCH (10:27)
[2016-09-08] MEDS: LEVOFLOXACIN INJ 500 MG in PREMIX 1 EACH IV SCH (10:28)
[2016-09-08] MEDS: SOLIFENACIN 5 MG TABLET PO SCH (10:28)
[2016-09-08] MEDS: PANTOPRAZOLE 40 MG VIAL IV SCH (10:28)
[2016-09-09] MEDS: LACTATED RINGERS 1,000 ML IV SCH ×2 (01:43→15:51)
[2016-09-09] MEDS: SOLIFENACIN 5 MG TABLET PO SCH (09:46)
[2016-09-09] MEDS: PANTOPRAZOLE 40 MG VIAL IV SCH (09:46)
[2016-09-09] MEDS: ENOXAPARIN 40 MG/0.4 ML SYRINGE SUBCUT SCH (09:46)
[2016-09-09] MEDS: LEVOFLOXACIN INJ 500 MG in PREMIX 1 EACH IV SCH (10:56)
--- NOTE | 2016-09-09 12:18 | Event Note ---
She looks and feels much better. She feels she is ready to go to rehabilitation is tolerating a diet. She is afebrile with stable vital signs about her ultrasound of her lower extremities she still has her MADDI drain which has minimal output but it is cloudy I'm going to leave this for now. Her wound infection was limited skin and subcutaneous tissue there are no signs of infection and this appears to be healing nicely I'm okay with her going to [facility] for rehabilitation periodically check on her down there.
[2016-09-09] MEDS ORDERED: MAGNESIUM HYDROXIDE SUSP 30 ML UDCUP PO ONE (20:14)
[2016-09-10] MEDS ORDERED: BISACODYL 5 MG TABLET PO ONE (06:40)
--- NOTE | 2016-09-10 07:00 | Event Note ---
She feels okay but has not had a bowel movement. We will give her Dulcolax. She is afebrile with stable vital signs and her abdomen appears benign area we will discharge her to [facility] today. She can start rehabilitation there. I can check in on her periodically down at [facility].
[2016-09-10] MEDS: SOLIFENACIN 5 MG TABLET PO SCH (08:23)
[2016-09-10] MEDS: ENOXAPARIN 40 MG/0.4 ML SYRINGE SUBCUT SCH (08:24)
[2016-09-10] MEDS: PANTOPRAZOLE 40 MG VIAL IV SCH (08:24)
[2016-09-10] MEDS ORDERED: LEVOFLOXACIN 500 MG TABLET PO SCH (09:00)
[2016-09-10] MEDS ORDERED: DOCUSATE SODIUM 100 MG CAPSULE PO SCH (09:00)
[2016-09-10] MEDS ORDERED: PANTOPRAZOLE 40 MG TABLET PO SCH (09:00)
--- NOTE | 2016-09-10 09:32 | Discharge Summary ---
Hospital Course - Hospital Course Hospital Course: 65[address] harish SALAZAR w colovesicular fistula. she was taken to the OR on 08/27/16 for open sigmoid colectomy w stapled EEA anastomosis, complete mobilization of the splenic flexure and extensive KOFFI by dr harish SALAZAR. dr merna reagan was also involved for removal of the fistula from the bladder and placement of ureteral stent. postop she ran some intermittent fevers and tachycardia. she developed a wound infection and this was treated w local wound care and abx. wound cultures have grown several bacteria that are sensitive to levaquin. wound is clean and pt is afebrile, wbc are normal. pt is weak from extended hospital stay so she is being transferred to swing bed today. pt will keep prince for now and dr rodriguez will see her at [facility]. follow up 1 wk p dc from [facility]. pt to keep flores as well, follow up w dr reagan in clinic on 09/14 and she is to have stent removed in 6wks. complete dc instructions were given. - Time spent with patient Time with patient DS: Less than 30 minutes Specialty Discharge - Follow Up or Referrals Follow up with: Merna Reagan MD [Physician] - 09/14/16 2:00 pm Discharge Plan - Discharge Data Disposition: Swing Bed, Hos Based, [facility] Condition at Discharge: Stable Discharge Diet: advance to your usual diet Activity: as per physical therapy, no lifting Hygiene: may shower Contact your physician if you experience:: fever over 101, Redness or swelling Wound / Dressing Care Instructions: shower daily w hibiclens cleaning wound as well. irrigate and pack w dakins moistened gauze and cover. keep prince and flores for now - Discharge Medications New Acetaminophen Tab [Tylenol Tab] 650 mg PO Q6H PRN #0 tablet PRN Reason: Fever, Headache, Mild Pain Solifenacin [Vesicare] 5 mg PO DAILY tablet Docusate Sodium Cap [Colace Cap] 100 mg PO BID capsule Enoxaparin [Lovenox] 40 mg SUBCUT Q24H syringe HYDROcodone/ACETAMIN 7.5-325 [[place] 7.5-325] 1 tablet PO Q4H PRN #30 tablet PRN Reason: Pain Moderate (4-7) Levofloxacin Tab [Levaquin Tab] 500 mg PO DAILY #7 tablet Continue Mometasone 50 Mcg Nasal [place] [Nasonex Nasal [place]] 2 spray BOTH NARES BID Clorazepate Dipotassium 3.75 mg PO BID amLODIPine [Norvasc] 5 mg PO DAILY Aspirin [Ecotrin] 81 mg PO DAILY Omeprazole 20 mg PO DAILY Atorvastatin [Lipitor] 40 mg PO DAILY Aloe Vera 400 mg PO DAILY - Follow Up or Referral Follow Up: Merna Reagan MD [Physician] - 09/14/16 2:00 pm Darnell Rodriguez III., MD [Physician] - (notify md of room number) - Forms/Instructions Instructions: Cystoscopy (DC), Flores Catheter Placement and Care (DC), Colectomy (DC), Urethral Stent Placement (DC) Exam - Constitutional Vitals: Period Temp Pulse Resp BP Sys/Aviles Pulse Ox Last 24 Hr 98.3 F-99.0 F 80-96 18-18 145-168/82-104 94-99 DS: Provider Date of admission: 08/27/16 11:53 Primary care physician: Tali Klein MD Attending physician on admission: Darnell Rodriguez III., Consults: 09/05/16 09:46 Consult to Physical Therapy [CONS] Routine Reason for Physical Therapy: Evaluate and Treat 09/10/16 08:30 Consult to Case Mgmt/Social Srvs [CONS] Routine Reason for Case Mgmt/Social Srvs: Swingbed/SNF/Usp Consult Comment: Placement to [facility] S/B IP Rehab Discharging clinician: ROCIO Mckay Expected date of discharge: 09/10/16
[2016-09-10 12:29] VITALS: BP 149/94
== END 2016-09-10 11:45 | disposition swing bed (61) | DRG 655 ==
LOC: N.OR 05:19 → N.SDSINP 05:23 → N.3E 13:15
PROVIDERS: ADMIT Surgery; ATTEND Surgery

== ENCOUNTER 2017-10-26 16:33 | Inpatient (IN) ==
[2017-10-26] MEDS: LEVOFLOXACIN INJ 500 MG in PREMIX 1 EACH IV SCH (19:01)
[2017-10-26] MEDS: MORPHINE 2 MG/1 ML SYRINGE IV PRN (19:02)
[2017-10-26] MEDS: metroNIDAZOLE INJ 500 MG in PREMIX 1 EACH IV SCH (20:01)
[2017-10-27] MEDS: MORPHINE 2 MG/1 ML SYRINGE IV PRN ×4 (02:40→22:22)
[2017-10-27] MEDS: metroNIDAZOLE INJ 500 MG in PREMIX 1 EACH IV SCH ×4 (02:41→18:36)
[2017-10-27 07:53] LABS: Basophils % 0.3 % (0.0-0.8); Eosinophils # 0.1 10*3/uL (0.0-0.87); Eosinophils % 1.2 % (0.00-10.9); Hematocrit 36.7 VOL% (35.7-47.0); Immature Granulocytes % 0.4 %; Immature Granulocytes Absolute 0.04 #; Lymphocytes % 19.3 % (21.3-54.2); Mean Corpuscular HGB Conc 32.7 GM/DL (32-36); Mean Corpuscular Hemoglobin 31 PG (27-34); Mean Corpuscular Volume 93.1 FL (87-102); Mean Platelet Volume 9.1 FL (9.6-12.0); Monocytes # 0.9 10*3/uL (0.11-0.8); Neutrophils # 7.1 10*3/uL (1.4-7.4); Neutrophils % 69.8 % (38.7-73.9); Platelet Count 308 T/CUMM (130-400); Red Blood Count 3.94 MC/CUMM (3.8-5.5); White Blood Count 10.1 T/CUMM (4-12)
[2017-10-27 08:23] LABS: Calcium 8.6 MG/DL (8.5-10.1); Osmolality,Calculated 278.4 MOS/KG (273-304); Potassium 4.2 MMOL/L (3.5-5.1)
[2017-10-27] MEDS ORDERED: POLYETHYLENE GLYCOL POWDER 17 GM PACK PO PRN (10:08)
[2017-10-27] MEDS ORDERED: MOMETASONE 50 MCG NASAL SPRAY 17 GM BOTTLE BOTH NARES PRN (10:08)
[2017-10-27] MEDS ORDERED: CLORAZEPATE 3.75 MG TABLET PO PRN (10:08)
[2017-10-27] MEDS ORDERED: fentaNYL 100 MCG/2 ML VIAL ONE (10:26)
[2017-10-27] MEDS ORDERED: ALBUTEROL INHALER 8 GM INH ONE (10:26)
[2017-10-27] MEDS ORDERED: PROPOFOL 200 MG/20 ML VIAL IV ONE (10:26)
[2017-10-27] MEDS ORDERED: SEVOFLURANE 1 UNIT/15 MINUTE INH ONE (10:26)
[2017-10-27] MEDS ORDERED: ONDANSETRON 4 MG/2 ML VIAL ONE (10:26)
[2017-10-27] MEDS: ONDANSETRON 4 MG/2 ML VIAL IV PRN ×2 (11:44→22:22)
[2017-10-27] MEDS: PANTOPRAZOLE 40 MG TABLET PO SCH (16:46)
[2017-10-27] MEDS: LEVOFLOXACIN INJ 500 MG in PREMIX 1 EACH IV SCH (18:36)
[2017-10-28] MEDS: metroNIDAZOLE INJ 500 MG in PREMIX 1 EACH IV SCH ×3 (03:08→21:02)
[2017-10-28 05:19] LABS: Basophils % 0.4 % (0.0-0.8); Eosinophils # 0.2 10*3/uL (0.0-0.87); Eosinophils % 3.2 % (0.00-10.9); Hematocrit 35.7 VOL% (35.7-47.0); Hemoglobin 11.9 GM/DL (12.0-16.0); Immature Granulocytes % 0.4 %; Immature Granulocytes Absolute 0.03 #; Lymphocytes # 1.8 10*3/uL (1.4-4.0); Lymphocytes % 23.6 % (21.3-54.2); Mean Corpuscular HGB Conc 33.3 GM/DL (32-36); Mean Corpuscular Hemoglobin 31 PG (27-34); Mean Corpuscular Volume 91.5 FL (87-102); Mean Platelet Volume 9.5 FL (9.6-12.0); Monocytes # 0.6 10*3/uL (0.11-0.8); Monocytes % 7.8 % (1.7-12.7); Neutrophils # 4.9 10*3/uL (1.4-7.4); Neutrophils % 64.6 % (38.7-73.9); Platelet Count 321 T/CUMM (130-400); Red Cell Distribution Width 15.1 % (9.3-17.3); White Blood Count 7.6 T/CUMM (4-12)
[2017-10-28 05:52] LABS: Calcium 8.6 MG/DL (8.5-10.1); Osmolality,Calculated 277.5 MOS/KG (273-304); Potassium 4.8 MMOL/L (3.5-5.1)
[2017-10-28] MEDS: MORPHINE 2 MG/1 ML SYRINGE IV PRN (09:43)
[2017-10-28] MEDS: ATORVASTATIN 40 MG TABLET PO SCH (10:36)
[2017-10-28] MEDS: ASPIRIN EC 81 MG TABLET PO SCH (10:36)
[2017-10-28] MEDS: CETIRIZINE 10 MG TABLET PO SCH (10:37)
[2017-10-28] MEDS: amLODIPine 5 MG TABLET PO SCH (10:37)
[2017-10-28] MEDS: PANTOPRAZOLE 40 MG TABLET PO SCH (10:37)
[2017-10-28] MEDS: ENOXAPARIN 40 MG/0.4 ML SYRINGE SUBCUT SCH (10:43)
[2017-10-28] MEDS ORDERED: BISACODYL 5 MG TABLET PO ONE (15:21)
[2017-10-28] MEDS: ONDANSETRON 4 MG/2 ML VIAL IV PRN (15:47)
[2017-10-28] MEDS: VANCOMYCIN INJ 1,250 MG in SODIUM CHLORIDE 0.9% 250 ML IV SCH (17:15)
[2017-10-28] MEDS: LEVOFLOXACIN INJ 500 MG in PREMIX 1 EACH IV SCH (22:05)
[2017-10-29] MEDS: metroNIDAZOLE INJ 500 MG in PREMIX 1 EACH IV SCH ×2 (03:58→09:38)
[2017-10-29] MEDS: VANCOMYCIN INJ 1,250 MG in SODIUM CHLORIDE 0.9% 250 ML IV SCH ×2 (05:03→17:32)
[2017-10-29 05:04] LABS: Basophils % 0.3 % (0.0-0.8); Eosinophils # 0.3 10*3/uL (0.0-0.87); Eosinophils % 4.1 % (0.00-10.9); Hematocrit 35.7 VOL% (35.7-47.0); Hemoglobin 11.5 GM/DL (12.0-16.0); Immature Granulocytes % 0.4 %; Immature Granulocytes Absolute 0.03 #; Lymphocytes # 2.4 10*3/uL (1.4-4.0); Lymphocytes % 34.9 % (21.3-54.2); Mean Corpuscular HGB Conc 32.2 GM/DL (32-36); Mean Corpuscular Hemoglobin 30 PG (27-34); Mean Corpuscular Volume 93.5 FL (87-102); Mean Platelet Volume 9.4 FL (9.6-12.0); Monocytes # 0.6 10*3/uL (0.11-0.8); Monocytes % 8.8 % (1.7-12.7); Neutrophils # 3.5 10*3/uL (1.4-7.4); Neutrophils % 51.5 % (38.7-73.9); Platelet Count 315 T/CUMM (130-400); Red Blood Count 3.82 MC/CUMM (3.8-5.5); Red Cell Distribution Width 14.6 % (9.3-17.3); White Blood Count 6.9 T/CUMM (4-12)
[2017-10-29 05:33] LABS: Eosinophils 5 % (0-10); Giant Platelets Few; Hypochromasia 1+; Lymphocytes 31 % (20-55); Ovalocytes Slight; Platelet Estimate Adequate; Segmented Neutrophils 55 % (50-85); Total Cells Counted 100
[2017-10-29 05:34] LABS: Calcium 8.5 MG/DL (8.5-10.1); Osmolality,Calculated 277.4 MOS/KG (273-304); Potassium 4.4 MMOL/L (3.5-5.1)
[2017-10-29] MEDS: amLODIPine 5 MG TABLET PO SCH (09:37)
[2017-10-29] MEDS: ATORVASTATIN 40 MG TABLET PO SCH (09:37)
[2017-10-29] MEDS: ASPIRIN EC 81 MG TABLET PO SCH (09:37)
[2017-10-29] MEDS: CETIRIZINE 10 MG TABLET PO SCH (09:37)
[2017-10-29] MEDS: PANTOPRAZOLE 40 MG TABLET PO SCH (09:37)
[2017-10-29] MEDS: ENOXAPARIN 40 MG/0.4 ML SYRINGE SUBCUT SCH (09:37)
[2017-10-29] MEDS: MORPHINE 2 MG/1 ML SYRINGE IV PRN (10:34)
[2017-10-29] MEDS: MORPHINE 4 MG/1 ML VIAL IV PRN ×2 (10:36→19:21)
[2017-10-29] MEDS: LEVOFLOXACIN INJ 500 MG in PREMIX 1 EACH IV SCH (19:45)
[2017-10-30] MEDS: VANCOMYCIN INJ 1,250 MG in SODIUM CHLORIDE 0.9% 250 ML IV SCH ×2 (05:10→18:08)
[2017-10-30] MEDS: MORPHINE 4 MG/1 ML VIAL IV PRN ×2 (05:35→11:02)
[2017-10-30] MEDS: ENOXAPARIN 40 MG/0.4 ML SYRINGE SUBCUT SCH (09:34)
[2017-10-30] MEDS: CETIRIZINE 10 MG TABLET PO SCH (09:34)
[2017-10-30] MEDS: amLODIPine 5 MG TABLET PO SCH (09:34)
[2017-10-30] MEDS: ASPIRIN EC 81 MG TABLET PO SCH (09:34)
[2017-10-30] MEDS: ATORVASTATIN 40 MG TABLET PO SCH (09:34)
[2017-10-30] MEDS: PANTOPRAZOLE 40 MG TABLET PO SCH (09:35)
[2017-10-30] MEDS ORDERED: BISACODYL 10 MG SUPP RECTAL PRN (20:06)
[2017-10-30] MEDS: LEVOFLOXACIN INJ 500 MG in PREMIX 1 EACH IV SCH (20:18)
[2017-10-31] MEDS: VANCOMYCIN INJ 1,250 MG in SODIUM CHLORIDE 0.9% 250 ML IV SCH ×2 (04:57→17:35)
[2017-10-31] MEDS: ASPIRIN EC 81 MG TABLET PO SCH (08:50)
[2017-10-31] MEDS: CETIRIZINE 10 MG TABLET PO SCH (08:50)
[2017-10-31] MEDS: PANTOPRAZOLE 40 MG TABLET PO SCH (08:50)
[2017-10-31] MEDS: ENOXAPARIN 40 MG/0.4 ML SYRINGE SUBCUT SCH (08:50)
[2017-10-31] MEDS: ATORVASTATIN 40 MG TABLET PO SCH (08:50)
[2017-10-31] MEDS: amLODIPine 5 MG TABLET PO SCH (08:50)
[2017-10-31 11:56] VITALS: BP 146/77
[2017-10-31] MEDS: MORPHINE 4 MG/1 ML VIAL IV PRN (13:47)
== END 2017-10-31 19:18 | disposition home health service (06) | DRG 603 ==
LOC: N.3E 16:35 → EDSTATUS 10-27 10:30
PROVIDERS: ADMIT Surgery; ATTEND Surgery